=== PATIENT | female | born 1970 | race Caucasian/White ===

== ENCOUNTER 2018-10-21 18:15 | Observation (INO) ==
[2018-10-21] MEDS ORDERED: ASPIRIN PO ONE (18:41)
--- NOTE | 2018-10-21 18:45 | DR.CP ---
HPI - Time Seen Time seen: 18:40 - Complaint Chief Complaint Doctor Comments: Patient states she has been having xiphoid tightness for the past two days getting progressively worst tonight with SOB. States she has takes aspirin 81mg x2 pills last night and today. States she has had nausea and slight swelling in her legs and feet. She denies tobacco or alcohol use. states she has a strong family history of heart disease with her father dying for a heart attack in his 50's. She denies cold, cough, fever, chills, dysuria, or hematuria. - Reviewed Nurses Notes Review: Yes - Source History Provided: Patient - Mode of Arrival Mode of Arrival: Ambulatory - Timing Came on: Gradually Pain: Present Now - Duration Duration: Constant How lon Duration: Days - Location Location of Chest Pain: Chest Chest Pain Radiation Location: None - Context Onset: At rest Cardiac Risk Factors: Family History, HTN PE Risk Factors: None History of: None, Aspirin in last 24 hours Prehospital Care: ASA - Quality Quality: Squeezing, Other (tightness) - Severity Severity: Moderate - Modifying Factors Worsens: Movement, Position Impoves: Nothing - Associated Signs and Symptoms Associated Signs and Symptoms: Shortness of Breath ROS - Review of Systems Constitutional: No Symptoms Reported Eyes: No Symptoms Reported ENTM: No Symptoms Reported Respiratoy: No Symptoms Reported, Short of Breath Cardiovascular: No Symptoms Reported, Chest Pain Gastrointestinal/Abdominal: No Symptoms Reported, Nausea. negative: See HPI, Abdominal Pain, Constipation, Diarrhea, Vomiting, Food Intolerance, Other Genitourinary: No Symptoms Reported Neurological: No Symptoms Reported Musculoskeletal: No Symptoms Reported Integumentary: No Symptoms Reported Hematologic/Lymphatic: No Symptoms Reported. negative: See HPI, Anemia, Blood C lots, Easy Bleeding, Easy Bruising, Swollen Glands, Lymphadenopathy, Other Endocrine: No Symptoms Reported Psychiatric: No Symptoms Reported. negative: See HPI, Anxiety, Depression, Hallucinations, Excessive crying, Suicidal, Other PE - General Limitations: No Limitations General Appearance: Alert, In Distress (mild), Obese - Head Head Exam: Normal Inspection, Atraumatic, Normocephalic - Eyes Eye exam: Normal Appearance, PERRL, EOMI. negative: Scleral Icterus, Conjunctival Injection, Nystagmus, Miosis, Mydrasis, Periorbital Swelling, Periorbital Tenderness, Other - ENT ENT Exam: Normal Exam, Normal Oropharynx, Normal External Ear Exam, Mucous Membranes Moist, TM's Normal Bilaterally - Chest Chest Inspection: Normal Inspection, Symmetric Chest Wall Rise - Respiratory Respiratory Exam: Normal Lung Sounds Bilat Respiratory Exam: Bilateral Clear to Auscultation - Cardiovascular Cardiovascular Exam: Regular Rate, Normal Rhythm, Normal Heart Sounds Pulse: Normal Edema: Normal - Abdominal Exam Abdominal Exam: Normal Inspection, Normal Bowel Sounds, Soft. negative: Distention, Tenderness, Guarding, Rebound, Rigidity, Dimnished Bowel Sounds, Hyperactive Bowel Sounds, Hypoactive Bowel Sounds, Organomegaly, Trauma, Incision, Ascites, Mass, Bruit, Pulsatile Mass, Hernia, Other Abdominal Tenderness: negative: RUQ, RLQ, LUQ, LLQ, Epigastrium, Suprapubic, Diffuse, Mild, Moderate, Severe, Other - Extremities Extremities Exam: Normal Inspection, Full ROM, Normal Capillary Refill. negative: Tenderness, Edema, Joint Swelling, Calf Tenderness, Other - Back Back Exam: Normal Inspection, Full ROM. negative: Tenderness, (R) CVA Tenderness, (L) CVA Tenderness, Muscle Spasm, Paraspinal Tenderness, Vertebral Tenderness, Rashes, (R) Sciatic Notch Tenderness, (L) Sciatic Notch Tendern, (R) Straight Leg Raise, (L) Straight Leg Raise, Other - Neurologic Neurological Exam: Alert, Oriented X3, CN II-XII Intact, Normal Gait, Reflexes Normal - Psychiatric Psychiatric Exam: Normal Affect, Normal Mood. negative: Depressed, Agitated, Anxious, Flat Affect, Manic, Homicidal Ideation, Suicidal Ideation, Other - Skin Skin Exam: Warm, Dry, Intact, Normal Color. negative: Rash, Cyanosis, Diaphoresis, Erythema, Pallor, Mottled, Other - Vitals Vitals: Temperature 97.9 F Pulse Rate [Apical] 84 Pulse Rate 100 Respiratory Rate 16 Blood Pressure [Left Arm] 137/76 Blood Pressure 157/70 O2 Sat by Pulse Oximetry 98 Course - Reevaluation 1st: Improved - Consultation Called: 20:54 Call Returned: 20:54 (Dr. Maloney to admit) - Education/Counseling Education/Counseling: Patient, Family Educated On: Treatment, Diagnosis, Prognosis, Needs for Follow Up ROR - Labs Reviewed Laboratory Results Reviewed?: Yes (All labs and x-ray results reviewed and discussed with patient and family) Result Diagrams: 10/21/18 18:40 10/21/18 18:40 - XRAY XRAY Interpreted by: Radiologist (CXR:No acute or significant chronic chest abnormality demonstrated.) - EKG Rate: 95 [place]: Normal Rhythm: NSR Block: None Hypertrophy: None ST: Normal, Nonsp - Labs Reviewed Laboratory: WBC 8.1 X10^3/uL (3.6-10.0) 10/21/18 18:40 RBC 5.06 X10^6/uL (3.5-5.4) 10/21/18 18:40 Hgb 15.3 g/dL (12.0-16.0) 10/21/18 18:40 Hct 44.6 % (36.0-47.0) 10/21/18 18:40 MCV 88.2 fL (80.0-100.0) 10/21/18 18:40 MCH 30.2 pg (27.0-34.0) 10/21/18 18:40 MCHC 34.3 g/dL (33.0-35.0) 10/21/18 18:40 RDW 12.6 % (11.6-16.5) 10/21/18 18:40 Plt Count 264 X10^3/uL (150.0-450.0) 10/21/18 18:40 MPV 7.8 fL (7.4-11.0) 10/21/18 18:40 Neut % (Auto) 55.4 % (42.0-75.0) 10/21/18 18:40 Lymph % (Auto) 30.5 % (21.0-51.0) 10/21/18 18:40 [place] % (Auto) 8.1 % (0.0-13.0) 10/21/18 18:40 Eos % (Auto) 5.1 % (0.9-2.9) H 10/21/18 18:40 Baso % (Auto) 0.9 % (0.2-1.0) 10/21/18 18:40 Neut # (Auto) 4.5 x10^3/uL (2.2-4.8) 10/21/18 18:40 Lymph # (Auto) 2.5 X10^3/uL (1.3-2.9) 10/21/18 18:40 Walsh # (Auto) 0.7 x10^3/uL (0.3-0.8) 10/21/18 18:40 Eos # (Auto) 0.4 x10^3/uL (0.0-0.2) H 10/21/18 18:40 Baso # (Auto) 0.1 X10^3/uL (0.0-0.1) 10/21/18 18:40 Absolute Nucleated RBC 0.0 /100WBC 10/21/18 18:40 INR Target Range - 10/21/18 19:00 INR 1.03 (0.8-1.3) 10/21/18 19:00 APTT 26.8 SECONDS (22.9-36.5) 10/21/18 19:00 PTT Comment - 10/21/18 19:00 D-Dimer < 100 ng/mL (0-400) 10/21/18 18:40 Sodium 142 mmol/L (136-145) 10/21/18 18:40 Corrected Sodium 142 mmol/L (136-145) 10/21/18 18:40 Potassium 4.2 mmol/L (3.5-5.1) 10/21/18 18:40 Chloride 105 mmol/L (98-107) 10/21/18 18:40 Carbon Dioxide 29.2 mmol/L (21-32) 10/21/18 18:40 BUN 9 mg/dL (7-18) 10/21/18 18:40 Creatinine 0.71 mg/dL (0.55-1.02) 10/21/18 18:40 Est GFR (MDRD) Af Amer > 60 (>60) 10/21/18 18:40 Est GFR (MDRD) Non-Af > 60 (>60) 10/21/18 18:40 Glucose 112 mg/dL (65-99) H 10/21/18 18:40 Calcium 9.2 mg/dL (8.5-10.1) 10/21/18 18:40 Corrected Calcium TNP 10/21/18 18:40 Magnesium 1.9 mg/dL (1.7-2.9) 10/21/18 18:40 Total Bilirubin 0.50 mg/dL (0.2-1.0) 10/21/18 18:40 AST 41 Units/L (15-37) H 10/21/18 18:40 ALT 82 Units/L (12-78) H 10/21/18 18:40 Alkaline Phosphatase 92 Units/L (46-116) 10/21/18 18:40 Creatine Kinase 43 Units/L (26-192) 10/21/18 18:40 CK-MB (CK-2) < 1.0 ng/mL (0-4.0) 10/21/18 18:40 CK/CKMB % Calc 2.3 % (<4) 10/21/18 18:40 Troponin I < 0.02 ng/mL (0-1.5) 10/21/18 18:40 Total Protein 7.4 g/dL (6.4-8.2) 10/21/18 18:40 Albumin 3.6 g/dL (3.4-5.0) 10/21/18 18:40 Globulin 3.8 g/dL (2.5-4.5) 10/21/18 18:40 Albumin/Globulin Ratio 0.9 Ratio (1.1-2.1) L 10/21/18 18:40 Opioid - Opioid Risk Tool Total: 0 Total Score Risk Category: Low Risk - Diagnosis Discharge Problem: Chest pain, rule out acute myocardial infarction, Hyperglycemia, Essential hyp ertension - Discharge Plan Disposition: ADMITTED INPATIENT Condition: Stable
[2018-10-21] MEDS ORDERED: ASPIRIN EC 81 MG PO ONE (18:46)
[2018-10-21] MEDS ORDERED: ASPIRIN 81 MG CHEWTAB ONE (18:49)
[2018-10-21 18:54] LABS: BASOPHILS # (AUTO) 0.1 X10^3/uL (0.0-0.1); BASOPHILS % (AUTO) 0.9 % (0.2-1.0); EOSINOPHILS # (AUTO) 0.4 x10^3/uL (0.0-0.2); EOSINOPHILS % (AUTO) 5.1 % (0.9-2.9); HEMATOCRIT 44.6 % (36.0-47.0); HEMOGLOBIN 15.3 g/dL (12.0-16.0); LYMPHOCYTES # (AUTO) 2.5 X10^3/uL (1.3-2.9); LYMPHOCYTES % (AUTO) 30.5 % (21.0-51.0); MEAN CORPUSCULAR HEMOGLOBIN 30.2 pg (27.0-34.0); MEAN CORPUSCULAR HGB CONC 34.3 g/dL (33.0-35.0); MEAN CORPUSCULAR VOLUME 88.2 fL (80.0-100.0); MEAN PLATELET VOLUME 7.8 fL (7.4-11.0); MONOCYTES # (AUTO) 0.7 x10^3/uL (0.3-0.8); MONOCYTES % (AUTO) 8.1 % (0.0-13.0); NEUTROPHILS # (AUTO) 4.5 x10^3/uL (2.2-4.8); NEUTROPHILS % (AUTO) 55.4 % (42.0-75.0); PLATELET COUNT 264 X10^3/uL (150.0-450.0); RED BLOOD COUNT 5.06 X10^6/uL (3.5-5.4); RED CELL DISTRIBUTION WIDTH 12.6 % (11.6-16.5); WHITE BLOOD COUNT 8.1 X10^3/uL (3.6-10.0)
[2018-10-21] MEDS: NITROSTAT SL PRN ×3 (18:55→19:40)
--- NOTE | 2018-10-21 18:56 | RAD ---
Examination: AP chest History: Chest pain hypertension Findings: Normal heart size with clear lungs and pleural spaces. Impression: No acute or significant chronic chest abnormality demonstrated. Reported By:
[2018-10-21 19:13] LABS: BLOOD UREA NITROGEN 9 mg/dL (7-18); CALCIUM 9.2 mg/dL (8.5-10.1); CARBON DIOXIDE 29.2 mmol/L (21-32); CHLORIDE 105 mmol/L (98-107); COR NA(FOR HYPERGLY) 142 mmol/L (136-145); CREATININE 0.71 mg/dL (0.55-1.02); SODIUM 142 mmol/L (136-145); TROPONIN I < 0.02 ng/mL (0-1.5); eGFR NON BLACK RACES > 60 (>60)
[2018-10-21 19:17] LABS: ALANINE AMINOTRANSFERASE 82 Units/L (12-78); ALBUMIN 3.6 g/dL (3.4-5.0); ALKALINE PHOSPHATASE 92 Units/L (46-116); ASPARTATE AMINO TRANSFERASE 41 Units/L (15-37); CREATINE KINASE 43 Units/L (26-192); CREATINE KINASE MB < 1.0 ng/mL (0-4.0); MAGNESIUM 1.9 mg/dL (1.7-2.9); TOTAL PROTEIN 7.4 g/dL (6.4-8.2)
[2018-10-21 19:19] LABS: CKMB % 2.3 % (<4)
[2018-10-21] MEDS ORDERED: TORADOL 30 MG VIAL IVP ONE (19:41)
[2018-10-21] MEDS ORDERED: TORADOL 30 MG VIAL ONE (19:44)
[2018-10-21] MEDS ORDERED: NITROSTAT SL PRN (20:57)
[2018-10-21] MEDS: NS 1000 ML 1,000 ML IV SCH (22:10)
[2018-10-22 01:33] LABS: CKMB % 2.9 % (<4); CREATINE KINASE 38 Units/L (26-192); CREATINE KINASE MB 1.1 ng/mL (0-4.0); TROPONIN I < 0.02 ng/mL (0-1.5)
[2018-10-22 05:33] LABS: BASOPHILS # (AUTO) 0.1 X10^3/uL (0.0-0.1); BASOPHILS % (AUTO) 0.7 % (0.2-1.0); EOSINOPHILS # (AUTO) 0.4 x10^3/uL (0.0-0.2); EOSINOPHILS % (AUTO) 4.8 % (0.9-2.9); HEMATOCRIT 40.6 % (36.0-47.0); HEMOGLOBIN 13.7 g/dL (12.0-16.0); LYMPHOCYTES # (AUTO) 2.5 X10^3/uL (1.3-2.9); LYMPHOCYTES % (AUTO) 33.4 % (21.0-51.0); MEAN CORPUSCULAR HGB CONC 33.7 g/dL (33.0-35.0); MEAN PLATELET VOLUME 8.1 fL (7.4-11.0); MONOCYTES # (AUTO) 0.6 x10^3/uL (0.3-0.8); MONOCYTES % (AUTO) 8.4 % (0.0-13.0); NEUTROPHILS # (AUTO) 3.9 x10^3/uL (2.2-4.8); NEUTROPHILS % (AUTO) 52.7 % (42.0-75.0); PLATELET COUNT 212 X10^3/uL (150.0-450.0); RED BLOOD COUNT 4.56 X10^6/uL (3.5-5.4); RED CELL DISTRIBUTION WIDTH 12.7 % (11.6-16.5); WHITE BLOOD COUNT 7.5 X10^3/uL (3.6-10.0)
[2018-10-22 06:05] LABS: ALANINE AMINOTRANSFERASE 66 Units/L (12-78); ALBUMIN 3.1 g/dL (3.4-5.0); ALKALINE PHOSPHATASE 79 Units/L (46-116); ASPARTATE AMINO TRANSFERASE 32 Units/L (15-37); BLOOD UREA NITROGEN 13 mg/dL (7-18); CALCIUM 8.9 mg/dL (8.5-10.1); CARBON DIOXIDE 22.4 mmol/L (21-32); CHLORIDE 107 mmol/L (98-107); CHOL/HDL RATIO 3.3 (0.0-5.0); CHOLESTEROL 156 mg/dL (0-200); COR CA(FOR HYPOALB) 9.6 mg/dL (8.5-10.1); COR NA(FOR HYPERGLY) 142 mmol/L (136-145); CREATINE KINASE 33 Units/L (26-192); CREATINE KINASE MB < 1.0 ng/mL (0-4.0); CREATININE 0.69 mg/dL (0.55-1.02); HDL CHOLESTEROL 47 mg/dL (40-60); SODIUM 141 mmol/L (136-145); TOTAL PROTEIN 6.4 g/dL (6.4-8.2); TRIGLYCERIDES 102 mg/dL (0-150); TROPONIN I < 0.02 ng/mL (0-1.5); eGFR NON BLACK RACES > 60 (>60)
[2018-10-22] MEDS: PROTONIX INJ 40 MG VIAL IVP SCH (08:00)
[2018-10-22] MEDS: ASPIRIN PO SCH (08:00)
[2018-10-22] MEDS: LOVENOX INJ 40 MG SYR SC SCH (08:00)
[2018-10-22] MEDS ORDERED: XANAX PO PRN (11:59)
[2018-10-22] MEDS ORDERED: GLUCOPHAGE ONE (13:22)
[2018-10-22] MEDS ORDERED: COZAAR ONE (13:27)
[2018-10-22] MEDS: COLCRYS TAB 0.6 MG PO SCH (13:30)
[2018-10-22] MEDS: MOBIC TAB 15 MG PO SCH (13:45)
[2018-10-22] MEDS: GLUCOPHAGE PO SCH (13:45)
[2018-10-22] MEDS: SYNTHROID 75 mcg TAB PO SCH (13:45)
[2018-10-22] MEDS: LOPRESSOR TAB 50 MG PO SCH ×2 (13:45→20:30)
[2018-10-22] MEDS: COZAAR PO SCH (13:45)
[2018-10-22 14:30] LABS: CREATINE KINASE 39 Units/L (26-192); CREATINE KINASE MB < 1.0 ng/mL (0-4.0); TROPONIN I < 0.02 ng/mL (0-1.5)
[2018-10-22 14:36] LABS: CKMB % 2.6 % (<4)
--- NOTE | 2018-10-22 14:45 | DR.H&P ---
H&P - History & Physical for Day of: H&P Date: 10/21/18 - Chief Complaint Chief Complaint: CHEST PAIN - History of Present Illness History of Present Illness: IS A 48 YEAR OLD PATIENT OF OURS WHO PRESENTED TO THE ER WITH COMPLAINTS OF CHEST TIGHTNESS X 2 DAYS THAT HAS PROGRESSIVELY GOTTEN WORSE. ASSOCIATED SYMPTOMS INCLUDE SHORTNESS OF BREATH, NAUSEA, AND SWELLING TO BILATERAL FEET. SHE REPORTS TAKING TWO ASPIRIN 81MG LAST NIGHT WITHOUT IMPROVEMENT IN SYMPTOMS. SHE REPORTS A STRONG FAMILY HISTORY OF HEART DISEASE. SHE DENIES FEVER, COLD, COUGH, DYSURIA, OR HEMATURIA. ON ARRIVAL, VITALS WERE 97.9-100-20-95%-157/70. LABS WERE OBTAINED. ABNORMAL LAB VALUES INCLUDE THE FOLLOWING: GLUCOSE 112, AST 41, ALT 82. CARDIAC ENZYMES WERE WITHIN NORMAL LIMTS. EKG REVEALED: SINUS RHYTHM WITH HR 95. CHEST XRAY OBTAINED AND REVEALED: NO ACUTE OR SIGNIFICAN CHRONIC CHEST ABNORMALITY DEMONSTRATED. SHE WAS GIVEN ASPIRIN 162MG PO X 1, TORADOL 30MG IV X 1, AND NITROGLYCERIN 0.4MG XL X 3 DOSES. SHE REPORTS THAT NITROGLYCERIN DID RELIEVE THE PAIN. SHE WAS ADMITTED TO THE HOSPITAL FOR FURTHER EVALUATION AND TREATMENT OF CHEST PAIN RULE OUT ACUTE MA. WE PLAN TO OBTAIN SERIAL CARDIAC ENZYMES AND EKGS. SHE WAS STARTED ON LOVENOX 40MG SC DAILY, NITRO 0.4MG SL Q5MIN PRN, AND HOME MEDICATIONS WERE RESUMED. WE PLAN TO FOLLOW UP WITH AM LABS AND CONTINUE TO MONITOR. - Past Medical History Past Medical History: Diabetes, Gout, Hypertension, Hypothyroidism - Past Surgical History Surgical History: , Other - Family History Family Medical History: Diabetes Mellitus, MA, Coronary Artery Disease, Hypertension - Social History Does any household member use tobacco: No Alcohol Use: Rarely Drug Use: None Prescription drug monitoring program results: PDMP reviewed and no concerns identified - Medications Home Medications: No Known Drug Allergies Allergy (Verified 10/21/18 18:46) CONTINUE taking the following medications alprazolam 1 mg PO PRN PRN 10/21/18 [History] colchicine 0.6 mg PO DAILY 10/21/18 [History] dextroamphetamine-amphetamine 30 mg PO BID 10/21/18 [History] levothyroxine 75 mcg PO DAILY 10/21/18 [History] losartan 100 mg PO DAILY 10/21/18 [History] meloxicam 15 mg PO DAILY 10/21/18 [History] metformin 500 mg PO DAILY 10/21/18 [History] metoprolol tartrate 50 mg PO BID 10/21/18 [History] - Review of Systems Constitutional: No Symptoms Reported Eyes: No Symptoms Reported ENT: No Symptoms Reported Respiratory: Shortness of Breath Cardiovascular: Chest Pain Gastrointestinal: Nausea Genitourinary: No Symptoms Reported Musculoskeletal: No Symptoms Reported Skin: No Symptoms Reported Neurological: Weakness - Physical Exam Vital Signs: Temperature 96.7 F Pulse Rate [Apical] 78 Pulse Rate 100 Respiratory Rate 20 Blood Pressure [Left Arm] 131/94 Blood Pressure 157/70 O2 Sat by Pulse Oximetry 98 Oriented: Normal Eyes: Normal Ear: Normal Nose: Normal Throat: Normal Respiratory: Diminished Throughout Cardiovascular: Tachycardia. negative: S3, S4, Murmur : Normal Auscultation: Bowel Sounds: Normal Palpation: Normal Tenderness: Normal Skin: Normal Musculoskeletal: Normal Psychiatric: Normal Mood Description: Calm Affect: Normal Speech Pattern: Clear - Assessment/Plan (1) Chest pain, rule out acute myocardial infarction Status: Acute Plan: ADMIT, SERIAL CARDIAC ENZYMES AND EKGs, NITRO PRN, LOVENOX 40MG SC DAILY, BP CONTROL, CONTINUE TO MONITOR - Allergies Allergies/Adverse Reactions: Allergies Allergy/AdvReac Type Severity Reaction Status Date / Time No Known Drug Allergies Allergy Verified 10/21/18 18:46
[2018-10-22 16:55] LABS: CREATINE KINASE 39 Units/L (26-192); CREATINE KINASE MB < 1.0 ng/mL (0-4.0); TROPONIN I < 0.02 ng/mL (0-1.5)
[2018-10-22 16:58] LABS: CKMB % 2.6 % (<4)
[2018-10-22] MEDS: NS 1000 ML 1,000 ML IV SCH ×2 (20:18→22:00)
[2018-10-22 20:36] LABS: CREATINE KINASE 37 Units/L (26-192); CREATINE KINASE MB < 1.0 ng/mL (0-4.0); TROPONIN I < 0.02 ng/mL (0-1.5)
[2018-10-22 20:38] LABS: CKMB % 2.7 % (<4)
[2018-10-23 05:01] VITALS: BMI 48.9
[2018-10-23 05:15] LABS: BASOPHILS # (AUTO) 0.1 X10^3/uL (0.0-0.1); BASOPHILS % (AUTO) 0.9 % (0.2-1.0); EOSINOPHILS # (AUTO) 0.4 x10^3/uL (0.0-0.2); EOSINOPHILS % (AUTO) 5.8 % (0.9-2.9); HEMATOCRIT 39.4 % (36.0-47.0); HEMOGLOBIN 13.5 g/dL (12.0-16.0); LYMPHOCYTES # (AUTO) 2.3 X10^3/uL (1.3-2.9); LYMPHOCYTES % (AUTO) 37.1 % (21.0-51.0); MEAN CORPUSCULAR HEMOGLOBIN 30.4 pg (27.0-34.0); MEAN CORPUSCULAR HGB CONC 34.3 g/dL (33.0-35.0); MEAN CORPUSCULAR VOLUME 88.7 fL (80.0-100.0); MEAN PLATELET VOLUME 8.1 fL (7.4-11.0); MONOCYTES # (AUTO) 0.6 x10^3/uL (0.3-0.8); MONOCYTES % (AUTO) 9.2 % (0.0-13.0); NEUTROPHILS # (AUTO) 2.9 x10^3/uL (2.2-4.8); PLATELET COUNT 204 X10^3/uL (150.0-450.0); RED BLOOD COUNT 4.44 X10^6/uL (3.5-5.4); RED CELL DISTRIBUTION WIDTH 12.7 % (11.6-16.5); WHITE BLOOD COUNT 6.1 X10^3/uL (3.6-10.0)
[2018-10-23 05:22] LABS: ALANINE AMINOTRANSFERASE 63 Units/L (12-78); ALKALINE PHOSPHATASE 76 Units/L (46-116); ASPARTATE AMINO TRANSFERASE 29 Units/L (15-37); BLOOD UREA NITROGEN 13 mg/dL (7-18); CALCIUM 8.6 mg/dL (8.5-10.1); CARBON DIOXIDE 24.8 mmol/L (21-32); CHLORIDE 106 mmol/L (98-107); COR CA(FOR HYPOALB) 9.4 mg/dL (8.5-10.1); COR NA(FOR HYPERGLY) 142 mmol/L (136-145); CREATININE 0.64 mg/dL (0.55-1.02); SODIUM 141 mmol/L (136-145); TOTAL PROTEIN 6.4 g/dL (6.4-8.2); eGFR NON BLACK RACES > 60 (>60)
[2018-10-23] MEDS ORDERED: K-RIDER 10 MEQ/NS 100 ML 10 MEQ/100 ML BAG IV PRN (05:49)
[2018-10-23] MEDS ORDERED: POTASSIUM CHL 40 MEQ/NS 0.45% 500 ML IV PRN (05:49)
[2018-10-23] MEDS ORDERED: POTASSIUM CHLORIDE LIQ 20 MEQ UDC PO PRN (05:49)
[2018-10-23] MEDS ORDERED: MICRO K EXTEN CAP 10 MEQ PO PRN (05:49)
[2018-10-23] MEDS ORDERED: K-DUR TAB 20 MEQ PO PRN (05:49)
[2018-10-23] MEDS ORDERED: KLOR-CON PO PRN (05:49)
[2018-10-23] MEDS ORDERED: POTASSIUM CHL 60 MEQ/NS 0.45% 500 ML IV PRN (05:49)
[2018-10-23] MEDS ORDERED: MAGNESIUM SULFATE 1 GRAM/100 mL PREMIX 1 GM/100 ML BAG IV PRN (06:28)
[2018-10-23] MEDS ORDERED: GLUCOPHAGE ONE (07:54)
[2018-10-23] MEDS: COZAAR PO SCH (08:18)
[2018-10-23] MEDS: ASPIRIN PO SCH (08:18)
[2018-10-23] MEDS: COLCRYS TAB 0.6 MG PO SCH (08:20)
[2018-10-23] MEDS: SYNTHROID 75 mcg TAB PO SCH (08:20)
[2018-10-23] MEDS: MOBIC TAB 15 MG PO SCH (08:20)
[2018-10-23] MEDS: LOPRESSOR TAB 50 MG PO SCH (08:20)
[2018-10-23] MEDS: GLUCOPHAGE PO SCH (08:21)
[2018-10-23] MEDS: PROTONIX INJ 40 MG VIAL IVP SCH (08:21)
[2018-10-23 08:30] VITALS: BP 120/74
[2018-10-23] MEDS: LOVENOX INJ 40 MG SYR SC SCH (08:33)
[2018-10-23] MEDS ORDERED: COZAAR PO SCH (09:00)
== END 2018-10-23 10:45 | disposition home or self-care (01) ==
LOC: MED/SURG 18:18 → ER 18:18 → MED/SURG 21:52
PROVIDERS: ADMIT Internal Medicine; ATTEND Internal Medicine
DX: I10 Essential (primary) hypertension; R07.89 Other chest pain; E11.65 Type 2 diabetes mellitus with hyperglycemia; R06.02 Shortness of breath; E03.8 Other specified hypothyroidism
CPT/HCPCS: 36415; 71010; 71045; 80053; 80061; 82550; 82553; 83735; 84484; 85025; 85378; 85610; 85730; 93005; 94760; 96365; 96367; 96372; 96374; 99284; A4216; A4222; C9113; G0378; J1650; J1885; J7030